=== PATIENT | female | born 1995 | race Caucasian/White ===

== ENCOUNTER → 2018-09-23 | Outpatient (CLI) | payer OTHER ==
[~2018-09-23] MED LIST: CEPH500 PO; CITA20 PO; IBUP600 PO; NAPR500 PO
[2018-09-25 01:09] LABS: HIV SCREEN 4TH GENERATION WRFX Non Reactive (Non Reactive)
== END ==
LOC: LAB SHORT 13:57 → LAB EV 13:57
PROVIDERS: General Practice
DX: Z20.9 Contact with and (suspected) exposure to unspecified communicable disease (principal)
CPT/HCPCS: 86803; 87389

== ENCOUNTER → 2018-11-10 | Outpatient (CLI) | payer SELFPAY ==
[2018-11-12 01:11] LABS: HIV SCREEN 4TH GENERATION WRFX Non Reactive (Non Reactive)
== END | disposition home or self-care (01) ==
LOC: LAB EV 13:24 → LAB SHORT 13:24
PROVIDERS: Family Medicine
DX: Z20.9 Contact with and (suspected) exposure to unspecified communicable disease (principal)
CPT/HCPCS: 87389

== ENCOUNTER 2019-03-15 12:59 | Day surgery (SDC) | payer OTHER, SELFPAY ==
[~2019-03-15] VITALS: Ht 162.6 cm; Wt 85.6 kg
[~2019-03-15 12:59] MED LIST changes: +VIACTIV SOFT C1 EAC1 PO; +Verotin-Gr Cap1 EACH PO
[2019-03-15] MEDS ORDERED: OMEP20ER PO (14:00)
[2019-03-15] MEDS ORDERED: ACYC400 PO (14:00)
[2019-03-15] MEDS ORDERED: Endometrin100 MG PO (14:03)
--- NOTE | 2019-03-15 15:36 | NUR ---
03/15/19 1536 Marisela Best V ASSUMED CARE OF PT. REPORT GIVEN BY [facility].[place]. PT STATES SHE IS COMFORTABLE AND DOES NOT NEED ANYTHING AT THIS TIME.
--- NOTE | 2019-03-15 18:20 | NUR ---
03/15/19 1820 Heydi Zavala PATIENT IN RECLINER, MOM AT SIDE. PATIENT CRYING, STATES PAIN IS 9/10. MEDICATED PER ORDERS. VSS. WILL CONTINUE TO MONITOR.
== END 2019-03-15 19:25 | disposition home or self-care (01) ==
LOC: ORSCSDS 12:59
PROVIDERS: Orthopaedic Surgery
PROC: 0SBC4ZZ Excision of Right Knee Joint, Percutaneous Endoscopic Approach (ICD-10-PCS; principal; 2019-03-15 14:30)
DX: S83.241A Other tear of medial meniscus, current injury, right knee, initial encounter (principal); K21.9 Gastro-esophageal reflux disease without esophagitis; Z79.899 Other long term (current) drug therapy
CPT/HCPCS: A9270-GY; C1713; J0171; J0690; J1100; J1885; J2250; J2405; J2704; J2795; J3010; J7120

== ENCOUNTER → 2019-05-16 | Outpatient (CLI) | payer OTHER, SELFPAY ==
[~2019-05-16] MED LIST changes: +ACYC400 PO; +Endometrin100 MG PO; +OMEP20ER PO
[2019-05-17 03:07] LABS: HCV ANTIBODY <0.1 (0.0-0.9); HIV SCREEN 4TH GENERATION WRFX Non Reactive (Non Reactive)
== END ==
LOC: LAB EV 10:34 → LAB SHORT 10:34
PROVIDERS: Family Medicine
DX: Z20.9 Contact with and (suspected) exposure to unspecified communicable disease (principal)
CPT/HCPCS: 84460; 86317; 86803; 87389

== ENCOUNTER → 2019-05-19 | Outpatient (CLI) | payer OTHER, SELFPAY | LOC: LAB SHORT 12:11 → LAB 12:11 | DX: S83.401A Sprain of unspecified collateral ligament of right knee, initial encounter (principal) | CPT/HCPCS: 87070; 87075; 87077; 87186; 87205 ==

== ENCOUNTER 2021-06-12 06:18 | Day surgery (SDC) | payer OTHER ==
[~2021-06-12] VITALS: Ht 162.6 cm; Wt 85.7 kg
[2021-06-12] MEDS ORDERED: FAMO20 PO (07:31)
[2021-06-12 07:52] LABS: SARS-Cov-2 (COVID-19) PCR, MMC NEGATIVE (NEGATIVE)
== END 2021-06-12 08:57 | disposition home or self-care (01) ==
LOC: ORSCSDS 06:18
PROVIDERS: Otolaryngology
PROC: 0CBPXZZ Excision of Tonsils, External Approach (ICD-10-PCS; principal; 2021-06-12 07:30)
DX: J35.01 Chronic tonsillitis (principal); J45.909 Unspecified asthma, uncomplicated
CPT/HCPCS: 88304; A9270; J1100; J2250; J2405; J2704; J3010; J7120; U0004

== ENCOUNTER → 2022-02-24 | Outpatient (CLI) | payer OTHER ==
[~2022-02-24] MED LIST changes: +FAMO20 PO
[2022-02-24 14:14] LABS: BASOPHILS ABSOLUTE AUTO 0.04 K/mm3 (0.00-0.23); BASOPHILS PERCENT AUTO 0 % (0-2); EOSINOPHILS ABSOLUTE AUTO 0.13 K/mm3 (0.00-0.68); EOSINOPHILS PERCENT AUTO 1 % (0-6); Hematocrit 40.9 % (33.0-51.0); Hemoglobin 13.6 g/dL (11.5-16.0); IMMATURE GRAN ABSOLUTE AUTO 0.04 K/mm3 (0.00-0.10); IMMATURE GRAN PERCENT AUTO 0 % (0-1); LYMPHOCYTES PERCENT AUTO 24 % (21-46); MONOCYTES ABSOLUTE AUTO 0.86 K/mm3 (0.16-1.47); MONOCYTES PERCENT AUTO 8 % (4-13); Mean Corpuscular HGB Conc 33.3 g/dL (31.5-36.5); Mean Corpuscular Volume 90 fL (80-100); Mean Platelet Volume 9.2 fL (9.1-12.4); NEUTROPHILS ABSOLUTE AUTO 7.23 K/mm3 (1.96-9.15); NEUTROPHILS PERCENT AUTO 66 % (41-73); Platelet Count 270 K/mm3 (150-400); RDW Coefficient Variation 12.6 % (11.7-14.2); RDW Standard Deviation 41.9 fL (35.1-46.3); Red Blood Cell Count 4.53 M/mm3 (3.80-5.20)
[2022-02-24 14:29] LABS: Albumin, Blood 3.8 g/dL (3.4-5.0); Albumin/Globulin Ratio 1.1 (0.8-1.8); Bilirubin, Total 0.2 mg/dL (0.1-1.0); Bun/Creatinine Ratio 16.5 (12.0-20.0); Calcium, Blood 9.5 mg/dL (8.5-10.1); Creatinine, Blood 0.73 mg/dL (0.40-1.00); Globulin, Blood 3.5 g/dL (2.2-4.0); Total Protein, Blood 7.3 g/dL (6.4-8.2)
== END | disposition home or self-care (01) ==
LOC: LAB 13:56 → LAB SHORT 13:56
PROVIDERS: Physician Assistant
DX: R10.9 Unspecified abdominal pain (principal)
CPT/HCPCS: 80053; 85025

== ENCOUNTER → 2022-04-03 | Outpatient (CLI) | payer OTHER ==
[2022-04-04 07:11] LABS: HIV AB/P24 AG SCREEN Non Reactive (Non Reactive)
== END | disposition home or self-care (01) ==
LOC: LAB SHORT 08:45 → LAB 08:45
PROVIDERS: Nurse Practitioner Family
DX: Z77.21 Contact with and (suspected) exposure to potentially hazardous body fluids (principal)
CPT/HCPCS: 86803; 87389